=== PATIENT | male | born 1990 | race Caucasian/White ===

== ENCOUNTER 2023-08-09 06:01 | Emergency (ER) | payer OTHER, SELFPAY ==
[2023-08-09 06:04] VITALS: BP 156/101; PULSE 98; RESP 18; TEMP 36.9; O2SAT 93; BMI 34.6
--- NOTE | 2023-08-09 06:17 | ED_ITS ---
HPI - Back Pain/Injury General Chief Complaint: Back Pain/Injury Stated Complaint: BACK PAIN LT SIDE Time Seen by Provider: 08/09/23 06:10 Source: patient Mode of arrival: Wheelchair History of Present Illness HPI Narrative: patient was doing heavy lifting a few days ago when he injured his left low back. He now has pain from the left lower back down through the buttock and into the left thigh - at times it runs down to his left toe. He went to a chiropractor and had manipulation but had no improvement. He woke this morning and the pain was so bad he had difficulty walking. No weakness, paralysis or sensory change. No relief with ibuprofen. No fever, vomiting r diarrhea. No fall or blunt trauma. No MVC. He had a similar episode in October of last year and improved with prescription meds. No bowel or bladder dysfunction. Related Data Previous Rx's Medication Instructions Recorded methocarbamol 750 mg tablet 750 mg PO Q6H PRN pain #30 tabs 08/09/23 methylprednisolone 4 mg tablets in 4 mg PO DAILY #21 ea 08/09/23 a dose pack (Medrol (Rd)) nabumetone 750 mg tablet 750 mg PO BID PRN pain #20 tabs 08/09/23 Allergies Allergy/AdvReac Type Severity Reaction Status Date / Time No Known Drug Allergies Allergy Verified 08/09/23 06:09 [facility] Social History Smoking status: Never smoker Exam Narrative Exam Narrative: General: Alert, no acute distress, patient resting comfortably afebrile Skin: warm, intact, no pallor noted Head: Normocephalic, atraumatic Eye: Normal conjunctiva Respiratory: No acute distress Back: inspection of the back shows no obvious deformity, no swelling, no ecchymosis, contusion, abrasion, swelling, erythema, fluctuance or induration. Tenderness noted to left lower back and left buttock. Straight leg raise on left is positive. Straight leg raise on right is negative. No CVA tenderness noted bilaterally. Musculoskeletal: No deformity noted to bilateral lower extremities. no cyanosis or mottling noted. normal pulses at DP and PT 2+ bilaterally and symmetrically. Normal 5/5 strength at ankles with dorsiflexion and plantar flexion. Patient is able to ambulate. Normal sensation noted to both lower extremities. Neurological: AAOx4, normal sensory and motor observed. L5-S1 reflexes intact symmetrically. DTR 2+ at patellar bilaterally. Psychiatric: Cooperative and interactive. Constitutional Vital Signs, click to edit/add: Last Vital Signs Temp 98.4 F 08/09/23 06:04 Pulse 98 H 08/09/23 06:04 Resp 18 08/09/23 06:04 BP 156/101 H 08/09/23 06:04 Pulse Ox 93 L 08/09/23 06:04 O2 Del Method Room Air 08/09/23 06:04 Course Vital Signs Vital signs: Vital Signs Temperature 98.4 F 08/09/23 06:04 Pulse Rate 98 H 08/09/23 06:04 Respiratory Rate 18 08/09/23 06:04 Blood Pressure 156/101 H 08/09/23 06:04 Pulse Oximetry 93 L 08/09/23 06:04 Oxygen Delivery Method Room Air 08/09/23 06:04 Temperature 98.4 F 08/09/23 06:04 Pulse Rate 98 H 08/09/23 06:04 Respiratory Rate 18 08/09/23 06:04 Blood Pressure 156/101 H 08/09/23 06:04 Pulse Oximetry 93 L 08/09/23 06:04 Oxygen Delivery Method Room Air 08/09/23 06:04 MDM - Back Pain/Injury MDM Narrative Medical decision making narrative: Patient without neurological deficit to suggest acute cauda equina syndrome. No fever or risk factors for spinal abscess. He has a mechanical reason for the low back pain and prior history of lumbar radiculopathy. Patient given IM Solumedrol and IM Toradol along with oral Robaxin. No need for radiographic imaging at this time. he was encouraged to rest, given excuse for work and prescribed Relafen, Robaxin and a medrol dose pack to take at home. Discharge Plan Discharge Chief Complaint: Back Pain/Injury Clinical Impression: Sciatica, Strain of lumbar region Patient Disposition: Home, Self-Care Time of Disposition Decision: 06:24 Prescriptions / Home Meds: New nabumetone 750 mg tablet 750 mg PO BID PRN (Reason: pain) Qty: 20 0RF methylprednisolone [Medrol (Rd)] 4 mg tablets,dose pack 4 mg PO DAILY Qty: 21 0RF Rx Instructions: follow instructions on the packaging methocarbamol 750 mg tablet 750 mg PO Q6H PRN (Reason: pain) Qty: 30 0RF Instructions: Sciatica (ED), Low Back Strain (ED), Lower Back Exercises (ED) Stand Alone Forms: Portal Instructions Discharge Date/Time: 08/09/23 06:46
[2023-08-09] MEDS: METHOCARBAMOL 500 MG TABLET PO (06:34)
[2023-08-09] MEDS: KETOROLAC TROMETHAMINE 60 MG/2 ML VIAL IM (06:34)
[2023-08-09] MEDS: METHYLPREDNISOLONE SOD SUCC PF 125 MG/2 ML VIAL IM (06:34)
== END 2023-08-09 06:46 | disposition home or self-care (01) ==
PROVIDERS: Emergency Provider Emergency Medicine
DX: S39.012A Strain of muscle, fascia and tendon of lower back, initial encounter (principal); M54.42 Lumbago with sciatica, left side; X50.0XXA Overexertion from strenuous movement or load, initial encounter
CPT/HCPCS: 96372; 99284; J2930

== ENCOUNTER 2023-08-27 02:07 | Emergency (ER) | payer OTHER, SELFPAY ==
[2023-08-27 02:09] VITALS: BP 149/120; PULSE 92; RESP 18; TEMP 36.9; O2SAT 97; BMI 34.7
[2023-08-27 02:14] VITALS: BP 162/110
--- NOTE | 2023-08-27 02:18 | PC.NURSE ---
patient states he has pain that starts at the top of his left hip and groin area that travels down his leg to his left foot. denies any recent injury or trauma. denies any radiation of pain. patient states he was seen in this ER a few weeks ago and diagnosed with sciatica but does not believe this is the same thing.
--- NOTE | 2023-08-27 02:30 | ED.GENADUL1 ---
HPI - General Adult General Chief complaint: Extremity Injury, Lower Stated complaint: l hip groin pain Time Seen by Provider: 08/27/23 02:19 History of Present Illness HPI narrative: This 33-year-old male presents for evaluation of severe left-sided hip pain, back pain with radiation into the inguinal area and down to his left knee. The patient was seen here around Labor Day after he pulled something in his back. 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 He has been having pain since that time. He was seen in this emergency department and also by several physicians in [facility]. He is currently getting physical therapy. He has been seen by a chiropractor and had a manipulation. He has not had any loss of his bowel or bladder. He denies any weakness or numbness but just has severe pain. He states the only problem he has with using the bathroom is that he cannot get on and off the toilet due to the pain in his back. He has no chest pain or shortness of breath. He does not smoke. He has been on several different medications without any relief. His brought him to the emergency department this morning because he is unable to lie down or sit in the chair. He states the only time he gets any relief is when he stands and rocks on his right hip. He has not had a fever or urinary symptoms. He does not have a history of tobacco or drug use. He states that the physical therapist has ordered an MRI and he is waiting for his insurance to approve it. Related Data Allergies Allergy/AdvReac Type Severity Reaction Status Date / Time No Known Drug Allergies Allergy Verified 08/27/23 02:13 Review of Systems ROS Status of ROS 10 or more systems reviewed and unremarkable except as noted in history and below PFSH PFS Social History Smoking status: Never smoker Exam Narrative Exam Narrative: Nurses note and vital signs reviewed and patient is not hypoxic. Blood pressure is noted to be elevated at 162/100 General: Uncomfortable-appearing male pacing about the room, no respiratory distress, he was able to sit down briefly while I checked his reflexes but only for a brief period of time that he had to return to a standing position Skin: Warm, dry, no pallor noted. There is no rash noted. Head: Normocephalic, atraumatic Eye: Normal conjunctiva, no drainage, EOMI. PERRL Cardiovascular: Regular Rate and Rhythm S1S2, no murmurs, rubs or gallops Respiratory: Patient is in no distress, no accessory muscle use, lungs are clear to auscultation, no wheezing, rales or rhonchi Back: non-tender, no CVA tenderness bilaterally to percussion. GI: Normal bowel sounds, no tenderness to palpation, no masses appreciated. No rebound, guarding, or rigidity noted. Musculoskeletal: The patient has no evidence of calf tenderness, no pitting edema, symmetrical pulses noted bilaterally, tenderness to palpation in left lumbar spine, left piriformis muscle and left lateral hip (sciatic tender point) , no crepitus or skin rash noted. Neurological: A&O x4, normal speech, no saddle anesthesia, DTRs are brisk and equal bilaterally Psychiatric: Cooperative, anxious, pacing in the room due to left sided back and hip pain Constitutional Vital Signs, click to edit/add: Last Vital Signs Temp 98.5 F 08/27/23 02:09 Pulse 92 H 08/27/23 02:09 Resp 18 08/27/23 02:09 BP 162/110 H 08/27/23 02:14 Pulse Ox 97 08/27/23 02:09 Course Vital Signs Vital signs: Vital Signs Temperature 98.5 F 08/27/23 02:09 Pulse Rate 92 H 08/27/23 02:09 Respiratory Rate 18 08/27/23 02:09 Blood Pressure 149/120 H 08/27/23 02:09 Pulse Oximetry 97 08/27/23 02:09 Temperature 98.5 F 08/27/23 02:09 Pulse Rate 92 H 08/27/23 02:09 Respiratory Rate 18 08/27/23 02:09 Blood Pressure 162/110 H 08/27/23 02:14 Pulse Oximetry 97 08/27/23 02:09 Medical Decision Making [facility] Narrative Medical decision making narrative: This 33-year-old male presents for evaluation of ongoing left-sided low back and hip pain radiating into his left knee. The patient had a mild injury over the Day weekend and has been having this pain ever since. He has been seen in this emergency department, he has been seen by a chiropractor and he is currently participating in physical therapy. He was at physical therapy yesterday. He states that he is waiting for an MRI to be approved by his insurance company. He has no bowel or bladder dysfunction. There are no concerning symptoms for cauda equina or spinal abscess. He has not had any fever. His neuro exam is normal. There is no calf swelling or tenderness concerning for DVT, lower extremity pulses are brisk and equal bilaterally. He has been taking 800 mg Motrin 3-4 times a day which barely takes the edge off his pain and also started taking a ibuprofen and acetaminophen combination. I encouraged him to be careful taking acetaminophen as it can be toxic to his liver and also the large dose of ibuprofen can cause him to have renal dysfunction or an ulcer. Upon my initial examination in the emergency Department he was pacing in the room and was only able to sit down and briefly while I checked his reflexes. His reflexes are all normal. He has no saddle anesthesia. He has had an x-ray of his low back and stated that L3 or L4 looked funny on the x-ray which is why he is getting an MRI. I did explain to him that MRI imaging is not available at this time in this emergency department and he verbalizes understanding of that. Due to the severity of his pain and inability to even sit down he was medicated with IV Solu-Medrol, IV Toradol, Zofran, and a milligram of Dilaudid. He was also given 5 mg of IM Valium. On reevaluation he was able to sit in a chair and looked much more comfortable. He was given some recommendations stretches to help with the radicular pain from sciatica. He will be discharged home with 2 Percocet to use as needed and a perception for Percocet and Valium as well is Zofran and Colace for the narcotic related side effects. I did review his [facility] report and there was no reported activity. Discharge Plan Discharge Chief Complaint: Extremity Injury, Lower Clinical Impression: Sciatica Patient Disposition: Home, Self-Care Time of Disposition Decision: 03:30 Condition: Good Instructions: Sciatica (ED), Back Pain (ED), Lower Back Exercises (ED) Stand Alone Forms: Portal Instructions Referrals: Physician,Non-Staff, MD [Primary Care Provider] - 1 week
[2023-08-27] MEDS: 0.9 % SODIUM CHLORIDE 1,000 ML 1000 ML IV (02:45)
[2023-08-27] MEDS: KETOROLAC TROMETHAMINE 30 MG/ML VIAL IVP (02:45)
[2023-08-27] MEDS: DIAZEPAM 5 MG/ML - 2 ML INJ SYRINGE IM (02:57)
[2023-08-27] MEDS: HYDROMORPHONE HCL 2 MG/ML VIAL 1 MG IV (02:57)
[2023-08-27] MEDS: ONDANSETRON PF 4 MG/2 ML VIAL IV (02:58)
[2023-08-27] MEDS: METHYLPREDNISOLONE SOD SUCC PF 125 MG/2 ML VIAL IVP (02:58)
[2023-08-27] MEDS: OXYCODONE HCL/ACETAMINOPHEN 5MG/325MG 1 TAB PO (03:58)
[2023-08-27 04:01] VITALS: BP 138/88; PULSE 78; RESP 16; O2SAT 97
== END 2023-08-27 04:03 | disposition home or self-care (01) ==
PROVIDERS: Emergency Provider Emergency Medicine
DX: M54.42 Lumbago with sciatica, left side (principal)
CPT/HCPCS: 96372; 96374; 96375; 99284; J1170; J2930

== ENCOUNTER 2024-02-01 06:59 | Outpatient (OUT) | payer OTHER, SELFPAY ==
[2024-02-01 07:26] LABS: Alanine Aminotransferase 53 U/L (16-63); Albumin Globulin Ratio 1.2; Albumin Level 4.2 g/dL (3.4-5.0); Alkaline Phosphatase 80 U/L (46-116); Anion Gap 9.3; Aspartate Amino Transferase 18 U/L (15-37); BUN Creatinine Ratio 15.7; Bilirubin Total 0.9 mg/dL (0.2-1.0); Carbon Dioxide 29.8 mmol/L (21.0-32.0); Chloride 103 mmol/L (98-107); Chol HDL Ratio 4.5; Cholesterol 210 mg/dL (<=200); Estimated GFR (African America >60 (>=60); Estimated GFR (Non-African Ame >60 (>=60); Globulin 3.4 g/dL; Glucose 99 mg/dL (74-106); HDL Cholesterol 47 mg/dL (40-60); Potassium 4.1 mmol/L (3.5-5.1); Sodium 138 mmol/L (136-145); Total Protein 7.6 g/dL (6.4-8.2); Triglycerides 87 mg/dL (<=150); VLDL CHOLESTEROL 17.4 mg/dL
[2024-02-01 07:29] LABS: Basophils Absolute Auto 0.1 10^3/uL (0.0-0.1); Basophils Percent Auto 1.1 % (0.2-2.0); Eosinophils Absolute Auto 0.2 10^3/uL (0.0-0.7); Eosinophils Percent Auto 3.2 % (0.9-7.0); Hemoglobin 14.8 g/dL (14.0-18.0); Immature Granulocytes Abs Auto 0.01 10^3/uL (0.00-0.03); Immature Granulocytes Pct Auto 0.2 % (0.0-0.5); Lymphocytes Absolute Auto 2.1 10^3/uL (1.2-3.8); Lymphocytes Percent Auto 36.7 % (20.5-60.0); Mean Corpuscular HGB Conc 32.9 g/dL (29.9-35.2); Mean Corpuscular Hemoglobin 27.3 pg (25.9-34.0); Mean Corpuscular Volume 82.9 fL (80.0-94.0); Mean Platelet Volume 10.4 fL (9.5-13.5); Monocytes Absolute Auto 0.5 10^3/uL (0.3-0.8); Monocytes Percent Auto 8.5 % (1.7-12.0); Neutrophils Absolute Auto 2.9 10^3/uL (1.4-6.5); Neutrophils Percent Auto 50.3 % (43.0-75.0); Platelet Count 273 10^3/uL (150-450); Red Blood Count 5.43 10^6/uL (4.70-6.10); Red Cell Distribution Width 12.4 % (11.0-15.0); White Blood Count 5.7 10^3/uL (4.0-11.0)
== END 2024-02-01 07:00 | disposition home or self-care (01) ==
LOC: LAB 07:00
PROVIDERS: PCP Nurse Practitioner Family; Visit Provider Nurse Practitioner Family
DX: Z00.00 Encounter for general adult medical examination without abnormal findings (principal); I10 Essential (primary) hypertension
CPT/HCPCS: 36415; 80053; 80061; 85025